=== PATIENT | male | born 1955 | race Caucasian/White ===

== ENCOUNTER → 2017-10-04 | Outpatient (CLI) | payer BC ==
[~2017-10-04] MED LIST: ASPEC81 PO; CALCTAB5 PO; CHOLTAB3 PO; CMD1 PO; FLEC100T21 PO; FRRG PO; METO25TA56 PO; MULT-506 PO; OMEG10007 PO; OXYC-57 PO
--- NOTE | 2017-10-04 09:58 | DIAGNOSTIC IMAGING REPORT ---
TWO VIEW CHEST CLINICAL HISTORY: Asthma. Dyspnea. FINDINGS: PA and lateral chest radiographs are compared to study dated 12/24/2012. The cardiomediastinal heart is mildly enlarged and there is atherosclerotic calcification of the thoracic aorta. The lungs appear hyperinflated. Chronic interstitial thickening is similar to previous. No airspace consolidation or pleural effusion is identified. There is no pneumothorax. The skeletal structures are osteopenic. Mild degenerative change and scoliosis are noted in the thoracic spine. There are healed left-sided rib fractures. IMPRESSION: Cardiac enlargement with no active disease in the chest. Electronically signed by: Teo Queen M.D. 10/04/2017 9:57 AM Dictated Date/Time: 10/04/2017 9:55 AM
== END | disposition home or self-care (01) ==
LOC: C.RADBC 09:39
PROVIDERS: ATTEND Family Medicine
DX: J45.909 Unspecified asthma, uncomplicated (principal)

== ENCOUNTER → 2018-01-03 | Day surgery (SDC) | payer BC ==
--- NOTE | 2018-01-02 18:14 | HISTORY & PHYSICAL EXAMINATION ---
DATE OF ADMISSION: 01/03/2018 INDICATIONS: Abnormal stress echocardiography, angina pectoris. PRIMARY DOCTOR: Dr. Fly Nixon. HISTORY OF PRESENT ILLNESS: The patient is a 62-year-old male whose history is notable for: 1. Paroxysmal atrial fibrillation, multiple trials of antiarrhythmic therapy, ultimately underwent pulmonary vein isolation ablation procedure on 12/25/2017 with initial successful result. 2. Hypertension. 3. Mild hyperlipidemia. 4. Familial history of heart disease. The patient is referred now having discussion, been noticing symptoms of intermittent chest discomfort limiting activities over the last 1 month's time. Symptoms were sometimes associated with atrial fibrillation but oftentimes occurring independently of such. The patient underwent cardiac CT in the course of preevaluation prior to pulmonary vein isolation ablation with findings suggestive of atherosclerotic disease involving the left anterior descending. The patient successfully underwent pulmonary vein isolation ablation and post-procedure was referred and underwent stress echocardiography in course of followup. Study performed today demonstrated typical stress-induced symptoms of exertional chest tightness with ST depression in the anterior leads and echocardiographic findings consistent with LAD area of distribution ischemia. He is referred now for further evaluation. He notes no prior history of myocardial infarction or congestive heart failure. Notes no history of rheumatic fever or scarlet fever. Notes no history of renal or hepatic disease. Hypertension has been generally controlled. Up until recently, he has been physically active, biking, martial arts, etc. Does admit to occasional episodes of fatigue, especially post-arrhythmia. Notes no bleeding difficulties. No anticipated surgeries. Notes no melena, hematochezia, dysuria or hematuria. ALLERGIES: None. MEDICATIONS: Currently are omeprazole 20 mg twice per day, Eliquis 5 mg twice per day, metoprolol succinate 12.5 mg per day, flecainide 100 mg twice per day, calcium with vitamin D one tablet twice per day, omega-3 fish oil 2 per day, aspirin 81 mg per day. PAST SURGICAL HISTORY: Notable for left total hip replacement 08/2011, knee surgery 2012. FAMILY HISTORY: Positive for heart disease in father with history of dying of myocardial infarction at age 62. 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 He is a nonsmoker, rare alcohol user. PHYSICAL EXAMINATION: GENERAL: The patient is an age appropriate male in no acute distress. VITAL SIGNS: Reveal heart rate of 75, blood pressure 146/79. HEENT: Normocephalic and atraumatic. NECK: Thin. There is no jugular venous distention. There are no carotid bruits. LUNGS: Clear. CARDIOVASCULAR: Regular with normal S1 and S2. There is no murmur or rub. ABDOMEN: Soft. EXTREMITIES: Without cyanosis or clubbing. There is trivial pedal edema. Some ecchymosis overlying the left wrist. Right radial and ulnar pulses are intact. DATA: Laboratory studies on 12/25/2017 demonstrated white cell count of 5.9, hemoglobin of 13.8. INR 1.06. Sodium of 142, potassium 4.1, chloride 103, bicarbonate 29, BUN 16, creatinine 1.0. EKG 12/25/2017 demonstrated sinus rhythm, QT corrected of 507, rate 82. Stress echocardiography as per HPI with the patient exercising for 5 minutes on a Abner protocol before the test was stopped secondary to the patient experiencing typical angina with ST depression observed. Peak heart rate achieved was 130, representing 82% age predicted maximum. Blood pressure response was flat. At peak workload, the patient developed 1-[address] depression in the inferior leads, in the anteroseptal leads. Echocardiography demonstrated mild left ventricular hypertrophy at rest with normal left ventricular systolic function; with stress, LAD distribution became hypokinetic. IMPRESSION: A 62-year-old male with history as outlined, hypertension, paroxysmal atrial fibrillation, status post successful pulmonary vein isolation ablation, mild hyperlipidemia, presents now with atrial arrhythmias, having experienced intermittent symptoms of chest tightness. Screening CT scan and cardiac CTA performed prior to pulmonary vein isolation ablation identified area suspicious for left anterior descending artery lesion. Stress echocardiography today confirmed stress-induced ischemia in left anterior descending artery distribution, it was typical of symptoms recently observed. RECOMMENDATIONS: Discussed findings in detail. The patient will be referred for diagnostic cardiac catheterization. Procedure and risks explained in detail to the patient including additional risks of coronary intervention if indicated. The patient is agreeable to proceed, he is scheduled for procedure on 01/03/2018 at [facility]. Further recommendations pending the results of imaging. FIDELIA
[~2018-01-03] VITALS: Ht 175.3 cm; Wt 95.0 kg
[~2018-01-03] MED LIST changes: +ACETAMINOPHEN 325 MG TAB PO PRN; +APIX1TAB3 PO; +CHOL1000 PO; +FENTANYL CITRATE INJ 50 MCG/1 ML 2 ML VIAL ONE; +HEPARIN SOD (PORCINE) 1000 UNIT/ML 10 ML VIAL ONE; +METO25TA3 PO; +MIDAZOLAM HCL 1 MG/ML 2ML VIAL ONE; +NITROGLYCERIN/D5W 100MCG/ML 20ML SYR ONE; +NiCARDipine HCL INJ 2.5 MG/ML 10 ML AMP ONE; +ONDANSETRON INJ 2 MG/ML 2 ML VIAL IV PRN; +PRLSR20 PO; +SODIUM CHLORIDE 0.9% 1000ML 250 ML IV PRN; +[UNRECOGNIZED DRUG - OTHER]
[2018-01-03 07:11] VITALS: BP 123/87; PULSE 63; TEMP 36.5; O2SAT 95; Ht 175.3 cm; Wt 95.0 kg
--- NOTE | 2018-01-03 08:15 | History & Physical Bridge Note ---
H&P Re-Evaluation Bridge Note: I have examined the patient, reviewed the History & Physical and in the interval since the performance of the History & Physical I have noted the following changes of clinical significance: No changes noted
--- NOTE | 2018-01-03 08:18 | Pre Sedation Assessment ---
Pre Sedation Assessment General Date of Sedation: Jan 03, 2018. Vital Signs Past 12 Hours Date Time Temp Pulse Resp B/P (MAP) Pulse Ox O2 Delivery O2 Flow Rate FiO2 01/03/18 07:11 36.5 63 16 123/87 (99) 95 Room Air Review Cardiovascular: regular rate, rhythm, no edema, no gallop, no murmur Lungs: lungs clear, normal breath sounds Pre-Sedation Airway Assessment Smoking Status: Never Smoker Hx of Sleep Apnea: No Short Thick Neck: No Thyro-mental Distance: > 3 Finger Breadths Oral Cavity: WNL Mallampati Classification: Class I ASA Classification: Class I NPO Status Date of Last Intake of Fluids: Jan 02, 2018 Date of Last Intake of Solids: Jan 02, 2018 Procedure Planning Contraindications for Sedation: None Current Medications Reviewed: Yes Notes The planned sedation has been discussed with the patient. Informed Consent was obtained. I have identified the patient, determined the appropriateness of sedation and have assessed the patient immediately prior to the procedure. All medicine(s) and interventions are by my order.
--- NOTE | 2018-01-03 09:14 | Post Sedation Assessment ---
Post Sedation Assessment General Date of Sedation Jan 03, 2018. Vital Signs: Vital Signs Past 12 Hours Date Time Temp Pulse Resp B/P (MAP) Pulse Ox O2 Delivery O2 Flow Rate FiO2 01/03/18 09:10 55 16 139/79 (99) 95 Room Air 01/03/18 08:55 55 16 119/70 (86) 95 Room Air 01/03/18 07:11 36.5 63 16 123/87 (99) 95 Room Air Post Procedure Recovery Score Activity: (2) Moves 4 extremities * Respiration: (2) Deep breath/cough Circulation: (2) +/-20% PreAnes Value Consciousness: (2) Fully Awake Oxygen Saturation: (2) > 92% On Room Air Post Anesthesia Score: 10 Discharge Sedation Level of Care: Fast Track Phase II Post Sedation Plan On clinical assessment, the patient appears to have tolerated the sedation without complications. Patient is recovering as anticipated. Patient will continue to be monitored by nursing and may be discharged when sedation discharge criteria are met per below protocol. Upon Completions of procedure and additional 15 minutes continue every 5 minute vital signs and the P.A.R. score; then discharge to a Phase I or Fast Track to Phase II per the following guidelines: * Discharge Patient to appropriate Phase II area if PAR is 8 or greater or return to pre- procedure baseline. The post - procedure orders will be as directed. * If PAR score is less than 8 or not return to pre-procedure baseline then patient will follow Phase I monitoring till PAR is reached for Phase II. The Phase I may be done in procedure room or may call to secure a Phase I area. * If naloxone or flumazenil are used for reversal, hold in Phase I for an additional 60 -120 minutes before discharge to Phase II. Please call the Sedation Physician to re-evaluate and complete post-note for discharge to Phase II area. Do NOT discharge from procedure sedation or Phase 1 until post- sedation evaluation note is complete by procedure /sedation MD Sedation Discharge Instructions to be given to the patient at discharge to home.
--- NOTE | 2018-01-03 09:36 | Cardiac Catheterization ---
Procedure Note Procedure Date Jan 03, 2018. Pre-Procedure Diagnosis Angina, Positive Stress Test, CAD, Cardiothoracic Symptom AUC Score 8 Post-Procedure Diagnosis Severe CAD Procedure(s) Performed Coronary Angiography, Left Heart Cath Juvenile Officer Dr. Addison Mirror Finishing Machine Operator(s) Jairo SALESPERSON FLYING SQUAD Estimated Blood Loss 5cc Medication(s) Fentanyl, Heparin, Nicardipine, Nitroglycerin, Versed, Lidocaine 1% Summary of Findings 80% distal left main Hemodynamics Rest Ao: 108/69/87 Final Ao: 137/71/97 LV: 134/4/14 Recommendations CABG Specimens None Radiation Exposure (mGy) 302 Contrast (mls) 45 Anesthesia Start 0833, End 0855. Monitor: Alba Ernandez RN Procedural Complication(s) None Disposition Transmission Rebuilder Holding/Recovery ACC Data Cardiac Status Clinical evaluation leading to the procedure CAD Presntation: Unstable angina, Positive Stress Test Anginal Classification: CCS III Heart Failure: No Cardiogenic Shock w/in 24Hrs: No Cardiac Arrest w/in 24Hrs: No Imaging studies past 6 months: Yes Stress studies past 6 months: Yes Stress Echocardiogram: Yes - Positive, Risk/Extent of Ischemia (High) Cardiac CTA: Yes - 1VD Coronary Anatomy Dominant: Right Left Main (% Stenosis): Distal (80%) LAD (% Stenosis): Ostial (80%), Proximal (10%), Mid (diffuse 30-40%), Distal ( 30%) D1 (% Stenosis): Proximal (10%), Mid (40%) L PL1 (% Stenosis): Ostial (Diffuse mild luminal irregularities through out vessel 10%) L PL2 (% Stenosis): Ostial (Diffuse mild luminal irregularities through out vessel 10%) RCA (% Stenosis): Proximal (10%), Mid (20%), Distal (30%) R PDA (% Stenosis): Proximal (bifurcartes proximally, mild luminal irregularities through out vessel 10%) R PL1 (% Stenosis): Normal R PL2 (% Stenosis): Normal AM (% Stenosis): Ostial (50%) Ramus (% Stenosis): Ostial (poorly visualized ostium, appears 'hazy' with 70-80 % stenosis in limited views) Diagnostic Status: Urgent Closure Device Percutaneous Entry Location: Radial Closure Device: Radial Band Recommendations: CABG Intraprocedure Events Significant Dissection: No Perforation: No
[2018-01-03 14:30] VITALS: BP 137/69; PULSE 59; O2SAT 95
== END | disposition home or self-care (01) ==
LOC: C.CATH 06:57
PROVIDERS: ATTEND Internal Medicine Cardiovascular Disease
DX: I25.119 Atherosclerotic heart disease of native coronary artery with unspecified angina pectoris (principal); I48.0 Paroxysmal atrial fibrillation; I10 Essential (primary) hypertension; E78.5 Hyperlipidemia, unspecified; Z82.49 Family history of ischemic heart disease and other diseases of the circulatory system; Z79.899 Other long term (current) drug therapy; Z79.82 Long term (current) use of aspirin; Z96.642 Presence of left artificial hip joint

== ENCOUNTER 2019-05-29 05:03 | Inpatient (IN) ==
--- NOTE | 2019-04-23 11:11 | PAT Medication Instructions ---
Medication Instructions Date of Service April 23, 2019 Home Medications aspirin [Aspir-81] 81 mg PO QAM atorvastatin 80 mg PO HS cholecalciferol (vitamin D3) [Vitamin D3] 1,000 unit PO HS metoprolol succinate 25 mg PO BID multivitamin 1 tab PO QAM omega 4-hvu-jvu-fish oil [Fish Oil] 2,000 mg PO HS nitroglycerin [Nitrostat] 0.4 mg SUBLINGUAL UD PRN Continue as directed nitroglycerin [Nitrostat] 0.4 mg SUBLINGUAL UD PRN (if needed) STOP taking 2 weeks before surgery (or as soon as possible if surgery is within 2 weeks) omega 9-rpo-cvd-fish oil [Fish Oil] 2,000 mg PO HS DO NOT take the morning of surgery multivitamin 1 tab PO QAM Take morning of surgery With a small sip of water, OTHERWISE NOTHING TO EAT OR DRINK AFTER MIDNIGHT: aspirin [Aspir-81] 81 mg PO QAM metoprolol succinate 25 mg PO BID Take evening before surgery atorvastatin 80 mg PO HS cholecalciferol (vitamin D3) [Vitamin D3] 1,000 unit PO HS metoprolol succinate 25 mg PO BID Other Notes If you have any questions please call us at [phone] or [phone] or [phone] or [phone]
--- NOTE | 2019-04-24 08:29 | Anesthesiology Consultation ---
Date of Service April 24, 2019 Assessment & Plan (1) Encounter for pre-operative examination: - Preop EKG at PAT 04/24/19 noted SB at 58bpm. ST elevation, consider early repolarization, pericarditis or injury. Patient denied cardiopulmonary complaints at PAT visit. EKG was forwarded to cardio for review; cardio response received: 04/29/19: felt early repolarization; "No change from prior" in regards to EKG review. - Cardio: 04/10/19: "No contraindications to hip surgery as planned.. careful management of electrolytes postoperatively." - K 5.2 on preop labs; will recheck AM DOS. Chart Review Chart Review: Acceptable Risk for Surgery and Patient seen in Pre Admission Testing Teaching & Discussion Pre-Anesthesia Teaching/Discussion Notes: Instructed NPO after midnight before surgery,except medications with 15 cc of water. Medication instructions prov ided according to the [facility] guidelines. History Surgery Operation Date: 05/29/19 07:00 Proposed Procedures p Right Total Hip Replacement - Randall Lemon MD Height/Weight Height: 5 ft 9 in Weight: 93.1 kg Allergies Allergy/AdvReac Type Severity Reaction Status Date / Time No Known Allergies Allergy Verified 04/17/19 15:01 Medications Home Medications Medication Instructions Recorded Confirmed Last Taken aspirin [Aspir-81] 81 mg PO QAM 10/02/18 04/17/19 04/17/19 atorvastatin 80 mg PO HS 10/02/18 04/17/19 04/16/19 cholecalciferol (vitamin D3) 1,000 unit PO HS 10/02/18 04/17/19 04/16/19 [Vitamin D3] metoprolol succinate 25 mg PO BID 10/02/18 04/17/19 04/17/19 multivitamin 1 tab PO QAM 10/02/18 04/17/19 04/17/19 omega 2-qfv-gdb-fish oil [Fish Oil] 2,000 mg PO HS 10/02/18 04/17/19 04/16/19 nitroglycerin [Nitrostat] 0.4 mg SUBLINGUAL UD PRN 04/17/19 04/17/19 Unknown Past Medical History Medical History Coronary artery disease S/P CABG X 3 (12/2017) History of asthma EXCERCISE INDUCED History of atrial fibrillation PAROXYSMAL S/P LEFT ATRIAL APPENDAGE CLOSURE WITH ATRIAL CLIP/PULMONARY VEIN ISOLATION (2018) Hyperlipidemia Presence of Watchman left atrial appendage closure device S/P LEFT ATRIAL APPENDAGE CLOSURE WITH ATRIAL CLIP/PULMONARY VEIN ISOLATION (2018) Exercise / Class Metabolic Activity II 4-5 Yardwork/Stairs/Walk up hill Past Family History Family History Other No significant family history Past Surgical History Surgical History History of cardiac cath 12/2017= SUBSEQUENT CABG X3 History of cardiac radiofrequency ablation "ATRIAL ABLATION" History of colonoscopy History of hand surgery ULNAR LIGAMENT/RIGHT THUMB History of total left hip arthroplasty Past Anesthesia History No Hx of Anesthesia Complications and No Family Hx of Anesthesia Complications History of PONV No Hx of PONV and No Hx of Motion Sickness Social History Smoking Status: Never smoker Do You Dip or Chew Tobacco: No Hx Alcohol Use: No Hx Substance Use: No substance use type: does not use Review of Systems Rare reflux. Patient denies chest pain, shortness of breath, dyspnea on exertion, cough, wheezing, palpitations. Physical Exam Vital Signs VITALS BP 146/81 P 61 TEMP 98.2 SP02 95%RA RESP 18 PHYSICAL Full neck and c-spine range of motion. Full TMJ range of motion. TMD 3.5 finger breaths Mallampati Score 1 Dentition: intact, crowns on sides/molars Lungs: clear throughout to auscultation Cardiac: regular rate and rhythm, no murmurs noted Spine: normal Carotid arteries: negative bruit Extremities: no edema Testing Laboratory Results 04/24/19 08:50 04/24/19 09:50 04/24/19 04/24/19 08:50 08:50 PT 11.0 INR 1.1 APTT 24.8 Blood Type A Positive Antibody Screen NEGATIVE Electrocardiogram Date: 04/24/19 SB at [address]pm[address] ST elevation, consider early repolarization, pericarditis or injury (patient denies cardiopulmonary complaints at PAT visit 04/24/19; report sent to cardio for their review). Chest X-Ray Date: 10/02/18 Findings: + NAD Poststernotomy changes. Echocardiogram Date: 06/03/18 EF 60-65%. No RWMA. No significant valvular disease. Left atrial appendage has been successfully ligated. Stress Test Date: 01/02/18 Type: exercise Stress ECHO positive for inducible ischemia. Anterior HK during stress suggestive of LAD distribution ischemia. Markedly abnormal downsloping/horiz ontal ST depression. Test terminated due to chest pain. EF 55-60%. Grade I DD. No significant valvular disease. Small anterior loculated pericardial effusion. 82% MPHR. 4.6 METS. Subsequent CABG done* Cardiac Catheterization Date: 01/03/18 Left Main (% Stenosis): Distal (80%) LAD (% Stenosis): Ostial (80%), Proximal (10%), Mid (diffuse 30-40%), Distal (30%) D1 (% Stenosis): Proximal (10%), Mid (40%) L PL1 (% Stenosis): Ostial (Diffuse mild luminal irregularities through out vessel 10%) L PL2 (% Stenosis): Ostial (Diffuse mild luminal irregularities through out vessel 10%) RCA (% Stenosis): Proximal (10%), Mid (20%), Distal (30%) R PDA (% Stenosis): Proximal (bifurcartes proximally, mild luminal ir regularities through out vessel 10%) AM (% Stenosis): Ostial (50%) Ramus (% Stenosis): Ostial (poorly visualized ostium, appears 'hazy' with 70- 80% stenosis in limited views) *Subsequent CABG*
[2019-04-24 10:48] LABS: Basophils # (auto) 0.03 K/uL (0-0.2); Basophils % (auto) 0.4 %; Eosinophils # (auto) 0.14 K/uL (0-0.5); Hematocrit (blood only) 39.9 % (42-52); Hemoglobin 13.1 g/dL (14.0-18.0); Immature Granulocytes # (auto) 0.02 K/uL (0.00-0.02); Immature Granulocytes % (auto) 0.3 %; Lymphocytes # (auto) 1.24 K/uL (1.2-3.4); Lymphocytes % (auto) 17.7 %; Mean Corpuscular Hgb Conc 32.8 g/dL (32-36); Mean Platelet Volume 10.3 fL (7.4-10.4); Monocytes # (auto) 0.39 K/uL (0.11-0.59); Monocytes % (auto) 5.6 %; Platelet Count 237 K/uL (130-400); RDW Coefficient of Variation 13.7 % (11.5-14.5); RDW Standard Deviation 49.7 fL (36.4-46.3); Red Blood Count 4.03 M/uL (4.7-6.1); White Blood Count 7.02 K/uL (4.8-10.8)
[2019-04-24 10:58] LABS: BUN Creatinine Ratio 23.9 (10-20); C Reactive Protein 0.48 mg/dl (0-0.29); Est GFR (African American) 74.1; Potassium 5.2 mmol/L (3.5-5.1)
[2019-04-24 11:01] LABS: INR 1.1 (0.9-1.1); Partial Thromboplastin Ratio 0.9; Partial Thromboplastin Time 24.8 Seconds (21.0-31.0)
--- NOTE | 2019-05-23 19:42 | History and Physical Report ---
DATE OF ADMISSION: 05/29/2019 CHIEF COMPLAINT: Right hip pain. 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 He has about a year to year and a half history of increasing right hip pain and discomfort, which has gradually gotten worse over time. We treated him conservatively with initially oral medicines and intra-articular hip joint injection, which helped him for a couple months. Since this, his symptoms have progressed. He continues to try and do martial arts, but is having more difficulty doing this. He is limited by groin pain, thigh pain and stiffness in his hip. He has difficulty putting his shoes and socks on this side. He has got a limited walking tolerance. He had his left hip replaced back in 2010 and has done well this. He would like his right hip replaced. PAST MEDICAL HISTORY: Include: 1. Coronary artery disease, status post CABG at [facility] on 11/05/2018, on baby aspirin. 2. Exercise-induced asthma. 3. Mild obesity, BMI of 30. 4. Cervical spondylosis. PAST SURGICAL HISTORY: Include: 1. CABG x3 December 2017 at [facility]. 2. Atrial ablation in 11/2017. 3. Left total hip replacement done on 09/03/2011. 4. Right knee arthroscopy. 5. Right ulnar collateral ligament repair. 6. Bilateral trigger finger releases. ALLERGIES: None. CURRENT MEDICINES: 1. Aspirin 81 mg. 2. Atorvastatin 80 mg at nighttime. 3. Metoprolol 25 mg twice a day. 4. Diclofenac 75 mg twice a day. 5. Supplements. SOCIAL HISTORY: A 64-year-old male. He is . 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 FAMILY HISTORY: Noncontributory. REVIEW OF HISTORY: Negative for diabetes, neurologic problems, vascular problems, bleeding disorders. He denies any chest pain or shortness of breath. He exercises regularly, does martial arts. No history of DVT or PE. PHYSICAL EXAMINATION: GENERAL: Reveals a healthy, pleasant, middle-aged male. He looks to be in good health. HEENT: Benign. NECK: Supple. No lymphadenopathy. LUNGS: Clear to auscultation. HEART: Regular rate and rhythm. ABDOMEN: Soft, nontender, nondistended. EXTREMITIES: Grossly neurovascularly intact except as follows: Examination of the right hip and leg reveals patient walks with a slightly antalgic gait. He is about 0.5 cm short on the right side compared to the left. He does have limited hip motion with stiffness to internal rotation to about neutral. This causes pain. Negative straight leg raise. No knee effusion. He is neurologically intact. X-RAYS: X-rays of the right hip were reviewed. It shows advanced right hip DJD. This has progressed markedly over the past 6 months where he has got complete loss of his joint space and subchondral sclerosis. ASSESSMENT: A 64-year-old gentleman status post left hip replacement, with advanced right hip degenerative joint disease. This has progressed significantly over the past 6 months and unresponsive to conservative treatment. He would like to have his right hip replaced. PLAN: We will take him to the operating room and do right total hip replacement. The risks and benefits of this procedure were explained to the patient including but not limited to DVT, PE, , infection, neurological injury, vascular injury, bleeding problem, pain, limited range of motion, stiffness, failure to relieve symptoms, incomplete relief of symptoms, need for further surgery in the future, fracture, leg length inequality, nerve palsy, dislocation, etc. The patient understands and desires to proceed. Informed consent was obtained. We did talk to him about taking his metoprolol on the morning of surgery. He does have a significant heart history, but had bypass surgery and is asymptomatic. He is planning to be discharged to home with likely some home health. FIDELIA
[2019-05-29] MEDS ORDERED: CEFAZOLIN 2000MG 2,000 MG/15 ML SYR IV SCH (06:00)
[2019-05-29] MEDS ORDERED: LR 60ML/HR IV SCH (06:00)
[2019-05-29] MEDS ORDERED: METOCLOPRAMIDE HCL 10 MG TABLET PO SCH (06:00)
[2019-05-29] MEDS ORDERED: SCOPOLAMINE 1.5 MG TDSY TD SCH (06:00)
[2019-05-29] MEDS ORDERED: GABAPENTIN 600 MG DOSE PO SCH (06:00)
[2019-05-29] MEDS ORDERED: FAMOTIDINE 20 MG TAB PO SCH (06:00)
[2019-05-29] MEDS ORDERED: TRANEXAMIC ACID 1,000 MG **IV Pre-op IV SCH (06:00)
[2019-05-29] MEDS ORDERED: ACETAMINOPHEN 500 MG TAB PO SCH (06:00)
[2019-05-29] MEDS ORDERED: LR 15ML/HR IV SCH (06:00)
[2019-05-29] MEDS ORDERED: BUPIVACAINE/EPINEPHRINE 0.5% MPF 1:200,000 30 ML VIAL ONE (06:25)
[2019-05-29] MEDS ORDERED: BACITRACIN INJ 50,000 UNIT VIAL ONE (06:25)
[2019-05-29] MEDS ORDERED: BUPIVACAINE 0.5 % 5 MG/1 ML PF 10ML VIAL ONE (06:30)
[2019-05-29] MEDS ORDERED: TRANEXAMIC ACID 1,000 MG **IV Intra-op IV SCH (06:30)
[2019-05-29] MEDS ORDERED: PROPOFOL IV EMULSION 10 MG/ML 20 ML VIAL IV ONE (06:41)
[2019-05-29] MEDS ORDERED: fentaNYL citrate 100 MCG/2 ML VIAL ONE (06:41)
[2019-05-29] MEDS ORDERED: MIDAZOLAM HCL 1 MG/ML 2ML VIAL ONE (06:41)
[2019-05-29] MEDS ORDERED: LIDOCAINE HCL 2% 2 ML VIAL/AMP(20MG/ML) INFIL ONE (06:41)
[2019-05-29] MEDS ORDERED: MoRPHine SULFATE PF 1 MG/ML 10 ML AMP/VIAL ONE (06:50)
--- NOTE | 2019-05-29 06:55 | History & Physical Bridge Note ---
Date of Service May 29, 2019 History & Physical Bridge Note I have examined the patient, reviewed the History & Physical and in the interval since the performance of the History & Physical I have noted the following changes of clinical significance: no changes noted
[2019-05-29] MEDS ORDERED: PROMETHAZINE HCL 25 MG in SODIUM CHLORIDE 0.9% 50 ML IV PRN (07:17)
[2019-05-29] MEDS ORDERED: KETOROLAC 30 MG/ML VIAL IV PRN (07:17)
[2019-05-29] MEDS ORDERED: DiphenhydrAMINE HCL 50 MG/ML VIAL IV PRN (07:17)
[2019-05-29] MEDS ORDERED: NALOXONE HCL 0.4 MG/1 ML VIAL/CARP IV PRN ×2 (07:17→10:06)
[2019-05-29] MEDS ORDERED: NALBUPHINE HCL INJ 10 MG/ML AMP IV PRN (07:17)
[2019-05-29] MEDS ORDERED: MEPERIDINE HCL 25 MG/ML CARP IV PRN (07:17)
[2019-05-29] MEDS ORDERED: MoRPHine SULFATE 2 MG/ML CARP IV PRN (07:17)
[2019-05-29] MEDS ORDERED: ePHEDrine sulfate 50 MG/ML AMP IV PRN (07:17)
[2019-05-29] MEDS ORDERED: LACTATED RINGER'S 500 ML IV PRN (07:17)
[2019-05-29] MEDS ORDERED: MoRPHine SULFATE PF 1 MG/ML 10 ML AMP/VIAL INT SPINAL ONE (07:17)
[2019-05-29] MEDS ORDERED: HYDROmorphone INJ 0.5 MG/0.5 ML SYR IV PRN ×2 (07:17→10:06)
[2019-05-29] MEDS ORDERED: NALOXONE HCL 0.08 MG in SYRINGE 1.8 ML IV PRN (07:17)
[2019-05-29] MEDS ORDERED: METOCLOPRAMIDE HCL 20 MG in SODIUM CHLORIDE 0.9% 50 ML IV PRN (07:17)
[2019-05-29] MEDS ORDERED: NALOXONE HCL 1 MG in SODIUM CHLORIDE 0.9% 1000ML 1,000 ML IV PRN (07:17)
[2019-05-29] MEDS ORDERED: ONDANSETRON INJ 2 MG/ML 2 ML VIAL IV PRN ×2 (07:17→10:06)
[2019-05-29] MEDS ORDERED: SODIUM CHLORIDE 0.9% 1000ML 1,000 ML IV SCH (07:30)
[2019-05-29] MEDS ORDERED: DC INTRASPINAL MORPHINE SCH (07:30)
[2019-05-29] MEDS ORDERED: NO NARCOTICS OR SEDATIVES SCH (07:30)
--- NOTE | 2019-05-29 08:40 | Post Operative Brief Note ---
Immediate Post Op Note v1 Date of Surgery May 29, 2019 Pre & Post Diagnosis Operation Date: 05/29/19 07:00 Pre-Op Diagnosis: RIGHT HIP PAIN + DJD Post-Op Diagnosis: RIGHT HIP PAIN + DJD Procedure Operation Date: 05/29/19 07:00 Actual Procedures p Right Total Hip Replacement(Right) - Randall Lemon MD Surgeon Randall Lemon MD Curtain Feller Blindstitch Krystian, PAC Estimated Blood Loss 200 Findings Consistent with Post-Op Diagnosis Fluids 1100 cc Specimens Right Femoral HEad Drains Quinonez Catheter Anesthesia Type Spinal MAC Complications none Disposition Accompanied Patient To Recovery: Yes Disposition: Recovery Room
--- NOTE | 2019-05-29 09:02 | XRay Report ---
XR hip 1V RT w pelvis CLINICAL HISTORY: Degenerative arthritis. Postsurgical study. COMPARISON: 11/29/2018 DISCUSSION: Again evident is a total left hip arthroplasty. There is no evidence for a total right hi p arthroplasty. The femoral and acetabular components appear well seated. There are overlying skin st aples. There is no dislocation. There is air within the soft tissues consistent with recent surgery. IMPRESSION: Postsurgical changes of a total right hip arthroplasty. Electronically signed by: Michael Rudolph M.D. 05/29/2019 9:01 AM
[2019-05-29] MEDS ORDERED: MULTIVITAMIN TAB PO SCH (10:06)
[2019-05-29] MEDS ORDERED: NITROGLYCERIN SL 0.4 MG/TAB TAB SL PRN (10:06)
[2019-05-29] MEDS ORDERED: ALUMINUM/MAGNESIUM SUSP 30 ML UDC PO PRN (10:06)
[2019-05-29] MEDS ORDERED: TAMSULOSIN HCL 0.4 MG CAP PO PRN (10:06)
[2019-05-29] MEDS ORDERED: BISACODYL 10 MG SUPP PR PRN (10:06)
[2019-05-29] MEDS: SODIUM CHLORIDE 0.9% 1000ML 1,000 ML IV SCH ×2 (10:06→21:46)
[2019-05-29] MEDS ORDERED: MAGNESIUM HYDROXIDE SUSP 30 ML UDC PO PRN (10:06)
[2019-05-29] MEDS ORDERED: HYDROmorphone HCL 2 MG TAB PO PRN (10:06)
[2019-05-29] MEDS ORDERED: METOCLOPRAMIDE HCL INJ 5 MG/ML 2 ML VIAL IV PRN (10:06)
--- NOTE | 2019-05-29 10:22 | Anesthesiology Progress Note ---
Date of Service May 29, 2019 Anesthesia Post Procedure Vital Signs Vital Signs: Temp Pulse Resp BP Pulse Ox 05/29/19 09:50 36.3 C L 51 L 15 125/71 96 05/29/19 09:40 36.3 C L 54 L 15 116/56 L 98 05/29/19 09:30 36.3 C L 51 L 15 126/70 99 05/29/19 09:20 36.3 C L 52 L 15 113/60 95 05/29/19 09:10 36.2 C L 52 L 19 127/63 96 05/29/19 09:00 36.2 C L 54 L 14 133/69 100 05/29/19 08:50 36.2 C L 57 L 23 125/64 95 05/29/19 08:41 36.2 C L 62 11 L 129/57 L 97 05/29/19 05:26 36.5 C 64 16 158/98 H 98 Transfer of Care Handoff Completed per policy Notes Mental Status: alert / awake / arousable and participated in evaluation Patient Amnestic to Procedure: Yes Nausea / Vomiting: adequately controlled Pain: adequately controlled Airway Patency, RR, SpO2: stable & adequate BP & HR: stable & adequate Hydration State: stable & adequate Neuraxial Anesthesia: was administered and sensory block is resolving Anesthetic Complications: no major complications apparent
[2019-05-29] MEDS: KETOROLAC 30 MG/ML VIAL IV SCH ×2 (12:40→17:38)
[2019-05-29] MEDS: MULTIVITAMIN TAB PO SCH (12:41)
[2019-05-29] MEDS: ACETAMINOPHEN 500 MG TAB PO SCH ×2 (13:56→21:35)
[2019-05-29] MEDS: CEFAZOLIN 2000MG 2,000 MG/15 ML SYR IV SCH ×2 (13:56→21:35)
[2019-05-29] MEDS ORDERED: TRANEXAMIC ACID 1,000 MG in 0.9 % SODIUM CHLORIDE 100 ML IV SCH (16:00)
[2019-05-29] MEDS: CHECK SCOPOLAMINE PATCH PLACEMENT SCH (16:19)
--- NOTE | 2019-05-29 17:20 | Progress Note ---
DATE: 05/29/2019 SUBJECTIVE: A 64-year-old gentleman postop from a right total hip replacement. He is doing well. Not had any pain yet. No chest pain or shortness of breath. Not feeling dizzy or lightheaded. OBJECTIVE: VITAL SIGNS: Temperature is 37.5. Vital signs stable. GENERAL: Reveals a pleasant, middle-aged male. He is sitting in his bedside chair and reading a book. EXTREMITIES: Examination of the right hip and leg reveals the leg lengths to be equal. Dressing is clean, dry and intact. Thigh is soft and supple. He can dorsiflex and plantarflex his foot appropriately. X-RAYS: X-rays of the right hip from Recovery Room reviewed. It shows right uncemented total hip arthroplasty. Components looked to be in good position. No signs of problems. 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 Pain is controlled. Hip is located. He is neurologically intact. PLAN: 1. DVT prophylaxis including thigh-high TEDs, SCDs, and aspirin twice a day. 2. PT/OT. Weight bear as tolerated. Right total hip protocol. 3. Pain control. Doing pretty well with current pain regimen. We are going to stick to Tylenol and Toradol and then use likely some Codeine for more severe bouts of pain. 4. Disposition: He is planning to be discharged to home once medically stable. [facility]
[2019-05-29] MEDS: ASCORBIC ACID 500 MG TAB PO SCH (17:38)
[2019-05-29] MEDS: FERROUS GLUCONATE 324 MG TAB PO SCH (17:38)
[2019-05-29] MEDS ORDERED: SENNA 8.6 MG TAB PO SCH (21:00)
[2019-05-29] MEDS ORDERED: ATORVASTATIN 40 MG TAB PO SCH (21:00)
[2019-05-29] MEDS ORDERED: OMEGA-3 (PURIFIED FISH OIL) 1 GM CAP PO SCH (21:00)
[2019-05-29] MEDS ORDERED: CHOLECALCIFEROL 1,000 UNITS TAB PO SCH (21:00)
[2019-05-29] MEDS: DOCUSATE SODIUM 100 MG CAP PO SCH (21:34)
[2019-05-29] MEDS: ASPIRIN 81 MG ECTAB PO SCH (21:34)
[2019-05-29] MEDS: METOPROLOL SUCC 25MG EXT REL TAB PO SCH (21:35)
[2019-05-30] MEDS: KETOROLAC 30 MG/ML VIAL IV SCH ×2 (00:15→06:08)
[2019-05-30] MEDS: CHECK SCOPOLAMINE PATCH PLACEMENT SCH (00:16)
[2019-05-30] MEDS ORDERED: DC INTRASPINAL MORPHINE SCH (01:17)
--- NOTE | 2019-05-30 01:34 | Operative Report ---
DATE OF OPERATION: 05/29/2019 SURGEON: Randall Lemon MD. ARCHITECTURAL JOB CAPTAIN: SHALINI Cruz. PREOPERATIVE DIAGNOSIS: Right hip degenerative joint disease. POSTOPERATIVE DIAGNOSIS: Right hip degenerative joint disease. PROCEDURE PERFORMED: Right uncemented ceramic on highly cross-linked polyethylene total hip arthroplasty. COMPLICATIONS: None. ESTIMATED BLOOD LOSS: 200 mL. FLUID REPLACEMENT: 1100 mL of crystalloid fluid replacement. ANESTHESIA: Spinal. DRAINS: None. SPECIMENS: Right femoral head sent for pathology. 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 He underwent a left hip replacement about 8 years ago and has done well from this. Over the past year, he has developed increased pain and discomfort in his right hip and progressive arthritic findings on x-ray. He did have an intraarticular hip joint injection which helped him for several months. His symptoms continued to progress despite conservative care. X-rays showed progressive arthritic change and the patient elects to proceed with operative treatment. OPERATIVE FINDINGS: Operative findings revealed advanced right hip DJD. He had grade 4 [id number] disease of the femoral head and the acetabulum. He did have a fairly significant medial osteophyte as well as an anterior acetabular osteophyte. He did have a fairly large kind of bursal pouch lateral to the IT band between the deep subcutaneous fat and the IT band consistent with some type of Foster-Josie injury in the past. OPERATIVE IMPLANTS: Operative implants consisted of: 1. A Biomet G7 size 54 mm acetabular shell. 2. A 6.5 cancellous acetabular screws, 1 at 35 mm length and 1 at 30 mm length. 3. An apex hole eliminator. 4. A highly cross-linked polyethylene liner with a 54 mm outer diameter, 36 mm inner diameter with a bee placed inferior and posterior. 5. DePuy Corail size 10 KLA femoral stem. 6. A +8.5/36 mm ceramic articular ball. OPERATIVE PROCEDURE: The patient was taken to the Operating Room, identified and placed on the operating table in supine position. All contact areas were appropriately padded. IV antibiotics were provided by the Anesthesia team. A spinal anesthetic had been implemented in the holding area. Quinonez catheter was placed in sterile fashion. The patient was then placed in the left lateral decubitus position. An axillary roll was placed. Stlberg hip positioner was used for positioning. The right hip and leg were then prepped and draped in usual sterile fashion. A posterolateral approach to the right hip was then performed through a curvilinear incision centered over the greater trochanter. Sharp dissection was carried through subcutaneous tissues. Deep in the subcutaneous tissues, there was a thickened sac which was really just a potential space, but clearly walled off sac consistent with a previous hematoma of some sort. I then incised the IT band and gluteal fascia in line with the skin incision. The piriformis and external rotators were then tagged and taken off the posterior aspect of the hip joint capsule. Great care was taken throughout the procedure to protect the sciatic nerve at all times. Posterior capsulotomy was then performed leaving a large flap for later repair. Hip was internally rotated and dislocated. A femoral neck osteotomy cut was made with the final cut 18 mm above the lesser trochanter. Femoral head was removed and sent for pathology. Attention was then drawn to the acetabulum. The acetabulum labrum was excised. The pulvinar fat was excised. Sequential reaming of the acetabulum was then performed beginning with a size 45 and progressing up to 53. A 54 mm Biomet G7 acetabular shell was then placed in about 40 degrees of lateral opening and 20 degrees of anteversion. It was fixed with two 6.5 cancellous acetabular screws. A trial liner was placed. A small anterior osteophyte was removed. Attention was then drawn to the femur. The proximal femur was entered with a cookie cutter followed by the canal finder. We did not use a lateralizing reamer. I broached beginning with a size 8 and progressing up to 10. We had very good fit at a time. His bone was extremely strong and I did not feel the need to broach larger. A calcar reamer was used to smoothen off the calcar. I trialed the hip. With the +5 articular ball with soft tissue lax, there was just a significant amount of soft tissue laxity remaining. We did have to place a +9 articular ball in the opposite side. Therefore, we used the +8.5 articular ball. Hip was fully stable in full extension and external rotation and flexion to 90 degrees, internal rotation to 50 degrees. I did elect to place a bee inferior and posterior to maximize his stability in flexion as he participates in [id number]. We elected to use these implants. All trial implants were removed. An apex hole eliminator was placed. Highly cross-linked polyethylene liner was placed. The bee was placed inferior and posterior. A DePuy Corail size 10 KLA femoral stem was impacted in position. A +8.5/36 mm ceramic articular ball was placed. Hip was located and once again found to be stable. Attention was then drawn toward closing. The wound was irrigated with copious amounts of pulsatile lavage solution. I injected locally with 60 mL of 0.5% Marcaine with epinephrine. The posterior capsule and external rotators were then repaired through drill holes in the posterior trochanter with #2 Ti-Cron suture. The IT band and gluteal fascia were closed with #1 PDS suture in running fashion. The subcutaneous tissues were then closed with 2 layers. I did close this bursal sac loosely with some [id number] #1 Vicryl sutures in a fashion to allow any fluid to drain. The deeper subcutaneous tissues were then closed with #1 Vicryl suture in buried interrupted fashion. Subcutaneous tissues were then closed with 2 Dexon suture in buried interrupted fashion. Skin was closed with skin marilyn. Leg was then cleaned, dried and a sterile dressing of Xeroform, 4 x 4's, sterile ABD pad and foam tape was applied. The patient then transferred to the Recovery Room in stable condition. The patient tolerated the procedure well with no complication. All needle and sponge counts were correct at the end of the operation. I attest to the content of the Intraoperative Record and any orders documented therein. Any exception s are noted below.
[2019-05-30 05:44] LABS: Basophils # (auto) 0.04 K/uL (0-0.2); Basophils % (auto) 0.4 %; Eosinophils # (auto) 0.28 K/uL (0-0.5); Eosinophils % (auto) 2.9 %; Hematocrit (blood only) 38.5 % (42-52); Hemoglobin 12.6 g/dL (14.0-18.0); Immature Granulocytes # (auto) 0.02 K/uL (0.00-0.02); Immature Granulocytes % (auto) 0.2 %; Lymphocytes # (auto) 1.23 K/uL (1.2-3.4); Lymphocytes % (auto) 12.6 %; Mean Corpuscular Hgb Conc 32.7 g/dL (32-36); Mean Corpuscular Volume 98.2 fL (80-100); Mean Platelet Volume 9.3 fL (7.4-10.4); Monocytes # (auto) 0.49 K/uL (0.11-0.59); Neutrophils % (auto) 78.9 %; Platelet Count 240 K/uL (130-400); RDW Coefficient of Variation 13.8 % (11.5-14.5); RDW Standard Deviation 49.3 fL (36.4-46.3); Red Blood Count 3.92 M/uL (4.7-6.1); White Blood Count 9.76 K/uL (4.8-10.8)
[2019-05-30] MEDS: ACETAMINOPHEN 500 MG TAB PO SCH (06:07)
[2019-05-30 06:12] LABS: BUN Creatinine Ratio 13.5 (10-20); Creatinine Clr Calc Pharmacy 79.6 ml/min; Est GFR (African American) 86.1; Est GFR (Non-African American) 74.3; Potassium 5.2 mmol/L (3.5-5.1)
[2019-05-30] MEDS: MULTIVITAMIN TAB PO SCH (08:26)
[2019-05-30] MEDS: FERROUS GLUCONATE 324 MG TAB PO SCH (08:26)
[2019-05-30] MEDS: ASPIRIN 81 MG ECTAB PO SCH (08:26)
[2019-05-30] MEDS: ASCORBIC ACID 500 MG TAB PO SCH (08:26)
[2019-05-30] MEDS: METOPROLOL SUCC 25MG EXT REL TAB PO SCH (08:26)
[2019-05-30] MEDS: DOCUSATE SODIUM 100 MG CAP PO SCH (08:26)
--- NOTE | 2019-05-30 08:39 | Progress Note ---
DATE: 05/30/2019 SUBJECTIVE: A 64-year-old gentleman postop day 1 from right hip replacement. He is doing well. Pain is controlled. No chest pain or shortness of breath. Not feeling dizzy or lightheaded. OBJECTIVE: VITAL SIGNS: Temperature 37.0. Vital signs are stable. PHYSICAL EXAMINATION: GENERAL: Reveals a pleasant, middle-aged male. He is sitting up in his bedside chair, looks pretty comfortable. EXTREMITIES: Examination of the right hip reveals the dressing to be clean, dry and intact. Leg lengths are equal. Hip is located. He is neurologically intact. LABORATORIES: Hemoglobin 12.6. Hematocrit 38.5. Electrolytes are stable. ASSESSMENT: A 64-year-old gentleman postoperative day 1 from right hip replacement, doing well. Pain is controlled. Hip is located. He is neurologically intact. PLAN: 1. DVT prophylaxis including thigh-high TEDs, SCDs, and aspirin twice a day. 2. PT/OT. Weight bear as tolerated. Right total hip protocol. 3. Pain control, doing well with current pain regimen. He will stick with Tylenol around the clock and use some Toradol. If he has more pain, we will use Tylenol No.3 and back off on the around the clock Tylenol. 4. Disposition: Plan to discharge to home later today.
--- NOTE | 2019-05-30 10:15 | Anesthesiology Progress Note ---
Date of Service May 30, 2019 Anesthesia Post Procedure Vital Signs Vital Signs: Temp Pulse Pulse Pulse Resp BP Pulse Ox 05/30/19 08:29 37.0 C 71 59 L 61 18 123/77 92 05/30/19 07:11 37.0 C 71 18 123/77 92 05/30/19 02:41 37.2 C 60 14 107/67 98 05/30/19 01:15 14 94 05/30/19 00:00 14 97 05/29/19 23:05 37.0 C 61 113/67 05/29/19 23:00 14 96 05/29/19 22:05 16 96 05/29/19 21:00 16 93 05/29/19 19:59 37.2 C 59 L 18 118/79 95 05/29/19 19:01 37.3 C 59 L 18 130/75 99 05/29/19 18:00 18 99 05/29/19 17:20 18 98 05/29/19 17:00 18 100 05/29/19 16:03 18 98 05/29/19 15:48 37.5 C 59 L 16 124/77 99 05/29/19 15:00 18 98 05/29/19 13:57 20 100 05/29/19 13:00 36.7 C 55 L 20 129/79 99 05/29/19 11:53 36.4 C L 51 L 18 137/74 100 05/29/19 10:59 36.5 C 49 L 18 136/79 100 05/29/19 10:24 36.4 C L 58 L 20 128/76 98 Pulse Ox 05/30/19 08:29 05/30/19 07:11 05/30/19 02:41 05/30/19 01:15 05/30/19 00:00 97 05/29/19 23:05 05/29/19 23:00 05/29/19 22:05 05/29/19 21:00 05/29/19 19:59 05/29/19 19:01 05/29/19 18:00 05/29/19 17:20 05/29/19 17:00 05/29/19 16:03 05/29/19 15:48 05/29/19 15:00 05/29/19 13:57 05/29/19 13:00 05/29/19 11:53 05/29/19 10:59 05/29/19 10:24 Transfer of Care Handoff Completed per policy Notes Mental Status: alert / awake / arousable Patient Amnestic to Procedure: Yes Nausea / Vomiting: adequately controlled Pain: adequately controlled Airway Patency, RR, SpO2: stable & adequate BP & HR: stable & adequate Hydration State: stable & adequate Neuraxial Anesthesia: was administered and sensory block resolved Anesthetic Complications: no major complications apparent and Pt Satisfied with anesthetic care
--- NOTE | 2019-06-03 09:22 | Discharge Summary ---
ADMITTING PHYSICIAN AND SURGEON: Randall Lemon MD ADMITTING DIAGNOSIS: Right hip degenerative joint disease. SURGERY PERFORMED: Right total hip arthroplasty. SECONDARY DIAGNOSES: Coronary artery disease, exercise-induced asthma, mild obesity, cervical spondylosis. CONSULTS: None obtained. HISTORY AND PHYSICAL EXAMINATION: Well documented in patient's chart. HOSPITAL COURSE: The patient was admitted on 05/29/2019, underwent total hip arthroplasty, tolerated the procedure well. There were no complications. He was transferred to the PACU postoperatively and later to the orthopedic floor for further care. He was given Ancef for antibiotic prophylaxis, GURINDER stockings, SCDs and aspirin for DVT prophylaxis. Hemoglobin, hematocrit and vital signs were monitored during his hospital stay and remained stable, did not require any blood transfusion. There were no complications. By postoperative day 1, he was tolerating a regular diet, pain was controlled with oral pain medicine. He was participating in physical therapy. On postop day 1, he was discharged home. He was given printed discharge instructions as well as new prescriptions for extra-strength Tylenol, Tylenol with codeine, aspirin and iron supplement. Continue his home medications, continue physical therapy, weightbearing as tolerated, GURINDER stockings, total hip precautions. Follow up approximately 2 weeks postop or sooner if there are any problems or concerns.
== END 2019-05-30 10:54 | disposition home or self-care (01) | DRG 470 ==
LOC: ASU 05:03 → 3E 08:45